=== PATIENT | male | born 1965 | race Caucasian/White ===

== ENCOUNTER → 2017-01-18 | Outpatient (CLI) | payer BC, OTHER ==
--- NOTE | 2017-01-21 09:23 | MR ---
EXAMINATION: MRI cervical spine HISTORY: Pain COMPARISON: None TECHNIQUE: Multiplanar multisequence images obtained through the cervical spine without contrast. FINDINGS: The cervical spinal alignment is normal. The vertebral body heights appear well maintained . There is no abnormal bone marrow signal. The cervical spinal cord signal is normal. The visualize d intracranial compartments appear normal. The prevertebral soft tissues appear normal. C2-C3: Unremarkable. C3-C4: Tiny diffuse disc bulge without significant spinal canal stenosis. Mild bilateral neural fora mallory stenosis accentuated by uncovertebral hypertrophy. C4-C5: Small diffuse disc bulge with minimal spinal canal stenosis. There is moderate left neural fo raminal stenosis accentuated by uncovertebral hypertrophy. C5-C6: Small diffuse disc bulge asymmetric to the left with minimal spinal canal stenosis. Moderate left neural foraminal stenosis accentuated by uncovertebral hypertrophy. C6-C7: Small diffuse disc bulge with minimal spinal canal stenosis. Mild to moderate right neural fo raminal stenosis. C7-T1: Grossly unremarkable. IMPRESSION: Mild to moderate multilevel degenerative disc disease noted with individual details drake kumar
== END ==
LOC: MW.MRI 09:19
DX: M25.519 Pain in unspecified shoulder (principal)
CPT/HCPCS: 72141; 72141-26

== ENCOUNTER 2024-10-26 16:45 | Emergency (ER) | payer OTHER ==
[2024-10-26 17:28] LABS: BASOPHILS ABSOLUTE AUTO 0.06 K/uL (0.00-0.20); BASOPHILS PERCENT AUTO 0.7 % (0.0-1.0); EOSINOPHILS ABSOLUTE AUTO 0.33 K/uL (0.00-0.45); EOSINOPHILS PERCENT AUTO 4.1 % (0.0-6.0); HEMATOCRIT 41.5 % (42.0-52.0); HEMOGLOBIN 14.4 g/dL (14.0-18.0); IMMATURE GRAN ABSOLUTE AUTO 0.03 K/uL (0.00-0.05); IMMATURE GRAN PERCENT AUTO 0.4 % (0.0-0.4); LYMPHOCYTES ABSOLUTE AUTO 2.42 K/uL (1.00-4.80); LYMPHOCYTES PERCENT AUTO 30.1 % (24.0-44.0); MEAN CORPUSCULAR HEMOGLOBIN 30.4 pg (28.0-32.0); MEAN CORPUSCULAR HGB CONC 34.7 g/dL (32.0-36.0); MEAN CORPUSCULAR VOLUME 87.6 fL (83.0-99.0); MEAN PLATELET VOLUME 10.2 fL (9.4-12.4); MONOCYTES ABSOLUTE AUTO 0.71 K/uL (0.00-0.80); MONOCYTES PERCENT AUTO 8.8 % (0.0-8.0); NEUTROPHILS ABSOLUTE AUTO 4.49 K/uL (1.80-7.70); NEUTROPHILS PERCENT AUTO 55.9 % (41.0-71.0); PLATELET COUNT,PLT 230 K/uL (150-400); RED BLOOD CELL COUNT 4.74 M/uL (4.52-5.90); WHITE BLOOD CELL COUNT,WBC 8.04 K/uL (3.9-11.3)
[2024-10-26 18:43] LABS: A/G RATIO 1.3 (0.9-1.6); ALBUMIN 3.7 g/dL (3.4-5.0); BILIRUBIN TOTAL 0.5 mg/dL (0.2-1.0); CALCIUM 9.2 mg/dL (8.5-10.1); CARBON DIOXIDE,CO2 29.2 mmol/L (21.0-32.0); EST CRCL DRUG DOSING (CG) 82.62 mL/min; POTASSIUM,K 3.8 mmol/L (3.5-5.1); PROTEIN TOTAL,TP 6.6 g/dL (6.4-8.2)
[2024-10-26] MEDS: Iopamidol 755 Mg/ML 100 ML Bottle IVPUSH ONE (19:00)
[2024-10-26 20:39] VITALS: BP 128/90; PULSE 76
== END 2024-10-26 20:38 | disposition home or self-care (01) ==
LOC: MW.ED 16:45
DX: S29.012A Strain of muscle and tendon of back wall of thorax, initial encounter (principal); Z79.899 Other long term (current) drug therapy; Z75.8 Other problems related to medical facilities and other health care; X58.XXXA Exposure to other specified factors, initial encounter
CPT/HCPCS: 36415; 71275; 80053; 83880; 84484; 85025; 93005; 99284; Q9967; 93010